=== PATIENT | female | born 1955 | race Caucasian/White ===

== ENCOUNTER 2024-11-23 09:04 | Day surgery (SDC) | payer MEDICARE, SELFPAY ==
[2024-11-19 11:09] VITALS: BMI 24.9
--- NOTE | 2024-11-20 14:39 | P.CONAN_ITS ---
Documented by User: Connie Urena NP 11/20/24 14:40 HPI - Anesthesia Eval Consult details Narrative: 69 yr old female for right Cataract Extraction IOL Insertion [facility] Past Medical History Medical History Cataracts, bilateral Smoker Postmenopausal state Peripelvic (lymphatic) cyst HLD (hyperlipidemia) History of kidney stones Hiatal hernia Hemorrhoids Goiter, nodular Surgical History Surgical History Hx of tubal ligation Hx of colonoscopy Social History Social History Patient Tobacco Use Status: Former Tobacco user Tobacco use type: Cigarette Smoked in Last 30 Days: No Use of substances other than those prescribed or required for medical reasons: No Are you DNR?: No Advance Directives: No Advance Directives Information Provided: Yes Advance Directives on File: No Meds Allergies Allergy/AdvReac Type Severity Reaction Status Date / Time No Known Allergies (No Known Allergy Verified 11/23/24 11:32 Allergies*) Home Medications ?Medication ?Instructions ?Recorded ?Confirmed ?Last Taken ?Type No Known Home Meds 11/19/24 11/19/24 Un known History Exam Height,Weight and Vital Signs: Height 5 ft 4.17 in Weight 66.1 kg Documented by User: Radha Cary MD 11/23/24 11:44 [facility] Past Medical History Medical History Cataracts, bilateral Smoker Postmenopausal state Peripelvic (lymphatic) cyst HLD (hyperlipidemia) History of kidney stones Hiatal hernia Hemorrhoids Goiter, nodular Surgical History Surgical History Hx of tubal ligation Hx of colonoscopy History of Problems with Anesthesia: No Social History Social History Patient Tobacco Use Status: Former Tobacco user Tobacco use type: Cigarette Smoked in Last 30 Days: No Use of substances other than those prescribed or required for medical reasons: No Are you DNR?: No Advance Directives: No Advance Directives Information Provided: Yes Advance Directives on File: No Meds Allergies Allergy/AdvReac Type Severity Reaction Status Date / Time No Known Allergies (No Known Allergy Verified 11/23/24 11:32 Allergies*) Home Medications ?Medication ?Instructions ?Recorded ?Confirmed ?Last Taken ?Type No Known Home Meds 11/19/24 11/19/24 Un known History Exam Airway Mallampati Class: II TM Dist: >3cm Neck ROM: Full Loose/Missing/Broken Teeth: No Heart: RRR Lungs: CTA Assessment and Plan Assessment Anesthesia Assessment: Anesthesia Plan Discussed and Chart Reviewed Final Anesthetic Review History of Problems with Anesthesia: No NPO: Yes ASA Class: II Final Preanesthetic Review: Meds/Allgs Chart Reviewed, Consent Obtained/Reviewed and Anes Risks/Benef Reviewed Patient Risk: Low Procedure Risk: Low Anesthetic Plan Anesthetic Plan: MAC: Disposition: Standard PACU
[2024-11-23] MEDS: Tetracaine HCl/PF 0.5% Oph Sol 4 ML DROPS 1 DROP EYE-RIGHT (11:11)
[2024-11-23] MEDS: Lactated Ringers 500 ML 50 ML IV (11:11)
[2024-11-23] MEDS: Ketorolac Tromethamine 0.5% Op 5 ML DROPS 1 DROP EYE-RIGHT ×3 (11:12→11:22)
[2024-11-23] MEDS: Tropicamide 1 % Ophth Sol 3 ML BTL 1 DROP EYE-RIGHT ×3 (11:12→11:22)
[2024-11-23] MEDS: Cyclopentolate 1 % Ophth Sol 2 ML DRPBTL 1 DROP EYE-RIGHT ×3 (11:12→11:22)
[2024-11-23] MEDS: Phenylephrine HCL 2.5% Oph SoL 2 ML BOTTLE 1 DROP EYE-RIGHT ×3 (11:12→11:22)
[2024-11-23 11:32] VITALS: BP 112/82; PULSE 60; RESP 18; TEMP 36.7; O2SAT 99
--- NOTE | 2024-11-23 12:06 | P.PCNO_ITS ---
Ophthalmology Procedure Procedure Date of Service: 11/23/24 Ophthalmology Viscoelastic: Healon Duet Dual Pack Pro Ophthalmology Lenses: IOL Acrysof MP - MA60AC (21) Procedure Notes: PREOPERATIVE DIAGNOSIS: Decreased visual acuity right eye secondary to cataract POSTOPERATIVE DIAGNOSIS: Same PROCEDURE: Right cataract extraction with intraocular lens insertion SURGEON: Rafael Armas M.D. ANESTHESIA: Topical/MAC ESTIMATED BLOOD LOSS: None COMPLICATIONS: None After obtaining informed consent, the patient was brought to the operating room suite and placed in the supine position. After adequate sedation per anesthesia, topical drops of Tetracaine were given to the right eye. The eye was then prepped and draped in the usual sterile fashion. The operating room microscope was then positioned over the operative eye and a lid speculum placed. A paracentesis was created. Viscoelastic was then instilled into the anterior chamber. A three plane incision was then created temporally, utilizing a 2.85 mm keratome. Capsulotomy forceps were then utilized to create a circular tear capsulotomy. Hydrodissection and hydrodelineation were carried out until adequate mobilization of the nucleus occurred. Phacoemulsification was then utilized to remove the dense central nucl eus followed by removal of the cortical material utilizing the automated aspiration irrigation unit. Viscoelastic was instilled into the posterior capsular bag followed by placement of a posterior chamber intraocular lens without difficulty. The residual Viscoelastic was then removed utilizing the automated IA machine. The wound was checked and found to be watertight. The patient tolerated the procedure well and the lid speculum was removed. Intracameral injection of Vigamox 0.1 mL followed by a subtenon injection of Kenalog-40 0.2 mL were administered. The patient will be seen in the a.m.
--- NOTE | 2024-11-23 12:06 | MHC.SHP ---
Pre-Procedural Eval Section A - 24 Hr Update-Section A only Date of Service: 11/23/24 The patient is an INPATIENT: No Changes since office visit: No Cold of Flu in the past 2 weeks, No New Medical Problems, No Changes in Medication and No Patient answered all questions The patient has been examined within 24 hours of the surgical procedure. The History & Physical has been completed within 30 days and I have reviewed it.: Yes Section B - Complete if H&P > 30 days Chief Complaint: Age-related nuclear cataract, right eye Allergies: Allergies Allergy/AdvReac Type Severity Reaction Status Date / Time No Known Allergies (No Known Allergy Verified 11/23/24 11:32 Allergies*) Plan Diagnosis/Plan: Unchanged I have reviewed the history and physical and performed a pertinent physical examination on my patient. No changes have occurred unless specified. Time Spent With Patient Time: Total time managing care of this patient today ____ minutes.
[2024-11-23 12:32] VITALS: BP 132/74; PULSE 75; RESP 18; TEMP 36.4; O2SAT 100
== END 2024-11-23 12:45 | disposition home or self-care (01) ==
PROVIDERS: PCP Registered Nurse; Visit Provider Ophthalmology
PROC: (CPT 66985; principal; 2024-11-23 12:00)
DX: H25.11 Age-related nuclear cataract, right eye (principal); H53.8 Other visual disturbances; Z87.891 Personal history of nicotine dependence
CPT/HCPCS: 66984; J2250; J3301; V2630

== ENCOUNTER 2024-12-07 06:12 | Day surgery (SDC) | payer MEDICARE, SELFPAY ==
[2024-11-19 11:13] VITALS: BMI 24.9
--- NOTE | 2024-12-03 14:38 | P.CONAN_ITS ---
Documented by User: Edel Lerma NP 12/03/24 14:38 HPI - Anesthesia Eval Consult details Narrative: 69yo F for Left Cataract Extraction IOL Insertion Right eye 11/23/24: [facility] Past Medical History Medical History Cataracts, bilateral Smoker Postmenopausal state Peripelvic (lymphatic) cyst HLD (hyperlipidemia) History of kidney stones Hiatal hernia Hemorrhoids Goiter, nodular Surgical History Surgical History Hx of right cataract extraction (11/23/24) Hx of tubal ligation Hx of colonoscopy History of Problems with Anesthesia: No Social History Social History Patient Tobacco Use Status: Former Tobacco user Tobacco use type: Cigarette Smoked in Last 30 Days: No Use of substances other than those prescribed or required for medical reasons: No Are you DNR?: No Advance Directives: No Advance Directives Information Provided: Yes Advance Directives on File: No Meds Allergies Allergy/AdvReac Type Severity Reaction Status Date / Time No Known Allergies (No Known Allergy Verified 11/23/24 11:32 Allergies*) Home Medications ?Medication ?Instructions ?Recorded ?Confirmed ?Last Taken ?Type No Known Home Meds 11/19/24 11/24/24 Un known History Exam Height,Weight and Vital Signs: Height 5 ft 4.17 in Weight 66.1 kg Assessment and Plan Assessment Anesthesia Assessment: Chart Reviewed Final Anesthetic Review History of Problems with Anesthesia: No Documented by User: Radha Cary MD 12/07/24 07:37 [facility] Past Medical History Medical History Cataracts, bilateral Smoker Postmenopausal state Peripelvic (lymphatic) cyst HLD (hyperlipidemia) History of kidney stones Hiatal hernia Hemorrhoids Goiter, nodular Functional capacity: wheelchair bound Surgical History Surgical History Hx of right cataract extraction (11/23/24) Hx of tubal ligation Hx of colonoscopy Social History Social History Patient Tobacco Use Status: Former Tobacco user Tobacco use type: Cigarette Smoked in Last 30 Days: No Use of substances other than those prescribed or required for medical reasons: No Are you DNR?: No Advance Directives: No Advance Directives Information Provided: Yes Advance Directives on File: No Meds Allergies Allergy/AdvReac Type Severity Reaction Status Date / Time No Known Allergies (No Known Allergy Verified 11/23/24 11:32 Allergies*) Home Medications ?Medication ?Instructions ?Recorded ?Confirmed ?Last Taken ?Type No Known Home Meds 11/19/24 11/24/24 Un known History Exam Airway Mallampati Class: II TM Dist: >3cm Neck ROM: Full Loose/Missing/Broken Teeth: No Heart: RRR Lungs: CTA Assessment and Plan Assessment Anesthesia Assessment: Anesthesia Plan Discussed Final Anesthetic Review NPO: Yes ASA Class: III Final Preanesthetic Review: Meds/Allgs Chart Reviewed, Consent Obtained/Reviewed and Anes Risks/Benef Reviewed Patient Risk: Intermediate Procedure Risk: Low Anesthetic Plan Anesthetic Plan: MAC: Disposition: Standard PACU
[2024-12-07 06:25] VITALS: BP 133/78; PULSE 72; RESP 16; TEMP 36.1; O2SAT 95
[2024-12-07] MEDS: Tetracaine HCl/PF 0.5% Oph Sol 4 ML DROPS 1 DROP EYE-LEFT (06:29)
[2024-12-07] MEDS: Tropicamide 1 % Ophth Sol 3 ML BTL 1 DROP EYE-LEFT ×3 (06:30→06:36)
[2024-12-07] MEDS: Cyclopentolate 1 % Ophth Sol 2 ML DRPBTL 1 DROP EYE-LEFT ×3 (06:30→06:35)
[2024-12-07] MEDS: Ketorolac Tromethamine 0.5% Op 5 ML DROPS 1 DROP EYE-LEFT ×3 (06:31→06:36)
[2024-12-07] MEDS: Phenylephrine HCL 2.5% Oph SoL 2 ML BOTTLE 1 DROP EYE-LEFT ×3 (06:32→06:37)
[2024-12-07] MEDS: Lactated Ringers 500 ML 50 ML IV (06:37)
--- NOTE | 2024-12-07 07:22 | MHC.SHP ---
Pre-Procedural Eval Section A - 24 Hr Update-Section A only Date of Service: 12/07/24 The patient is an INPATIENT: No Changes since office visit: No Cold of Flu in the past 2 weeks, No New Medical Problems, No Changes in Medication and No Patient answered all questions The patient has been examined within 24 hours of the surgical procedure. The History & Physical has been completed within 30 days and I have reviewed it.: Yes Section B - Complete if H&P > 30 days Chief Complaint: Age-related nuclear cataract, left eye Allergies: Allergies Allergy/AdvReac Type Severity Reaction Status Date / Time No Known Allergies (No Known Allergy Verified 11/23/24 11:32 Allergies*) Plan Diagnosis/Plan: Unchanged I have reviewed the history and physical and performed a pertinent physical examination on my patient. No changes have occurred unless specified. Time Spent With Patient Time: Total time managing care of this patient today ____ minutes.
--- NOTE | 2024-12-07 07:22 | HO.PNOPHT ---
Ophthalmology Procedure Procedure Date of Service: 12/07/24 Ophthalmology Viscoelastic: Healon Duet Dual Pack Pro Ophthalmology Lenses: IOL Acrysof MP - MA60AC (21) Procedure Notes: PREOPERATIVE DIAGNOSIS: Decreased visual acuity left eye secondary to cataract POSTOPERATIVE DIAGNOSIS: Same PROCEDURE: Left cataract extraction with intraocular lens insertion SURGEON: Rafael Armas M.D. ANESTHESIA: Topical/MAC ESTIMATED BLOOD LOSS: None COMPLICATIONS: None After obtaining informed consent, the patient was brought to the operation room suite and placed in the supine position. After adequate sedation per anesthesia, topical drops of Tetracaine were given to the left eye. The eye was then prepped and draped in the usual sterile fashion. The operating room microscope was then positioned over the operative eye and a lid speculum placed. A paracentesis was created. Viscoelastic was then instilled into the anterior chamber. A three plane incision was then created temporally, utilizing a 2.85 mm keratome. Capsulotomy forceps were then utilized to create a circular tear capsulotomy. Hydrodissection and hydrodelineation were carried out until adequate mobilization of the nucleus occurred. Phacoemulsification was then utilized to remove the dense central nucleus followed by removal of the cortical material utilizing the automated aspiration irrigation unit. Viscoat elastic was instilled into the posterior capsular bag followed by placement of a posterior chamber intraocular lens without difficulty. The residual Viscoat elastic was then removed utilizing the automated IA machine. The wound was check and found to be watertight. The patient tolerated the procedure well and the lid speculum was removed. Intracameral injection of Vigamox 0.1 mL followed by a subtenon injection of Kenalog-40 0.2 mL were administered. The patient will be seen in the a.m.
[2024-12-07 07:49] VITALS: BP 125/79; RESP 18; TEMP 36.2; O2SAT 100
== END 2024-12-07 08:23 | disposition home or self-care (01) ==
PROVIDERS: PCP Registered Nurse; Visit Provider Ophthalmology
PROC: (CPT 66985; principal; 2024-12-07 07:30)
DX: H25.12 Age-related nuclear cataract, left eye (principal); H53.8 Other visual disturbances; E78.5 Hyperlipidemia, unspecified; N28.1 Cyst of kidney, acquired; Z87.442 Personal history of urinary calculi; Z87.891 Personal history of nicotine dependence
CPT/HCPCS: 66984; J2250; J3301; V2630